=== PATIENT | female | born 1975 | race Caucasian/White ===

== ENCOUNTER 2019-03-27 21:14 | Observation (INO) ==
[2019-03-27] MEDS ORDERED: 0.9 % Sodium Chloride 500 ML IVC ONE (21:40)
[2019-03-27 21:53] LABS: Bilirubin,Urine Negative (Negative); Blood,Urine Negative (Negative); Clarity,Urine Clear (Clear); Color,Urine Yellow (Yellow); Glucose,Urine (UA) Normal (Normal); Ketones,Urine Negative (Negative); Leukocyte Esterase,Urine Negative (Negative); Nitrite,Urine Negative (Negative); Protein,Urine Negative (Neg-Trace); Specific Gravity,Urine 1.021 (1.010-1.025); Urobilinogen,Urine Normal (Normal)
[2019-03-27 22:24] LABS: Basophils % 0.3 %; Eosinophils # 0.1 K/mcL (0.0-0.6); Eosinophils % 1.1 %; Hematocrit 40.8 % (35.3-44.9); Hemoglobin 13.7 g/dL (11.5-15.4); Immature Granulocytes % 0.2 % (0-4); Lymphocytes % 9.6 %; Mean Corpuscular HGB Conc 33.6 g/dL (31.6-35.5); Mean Corpuscular Hemoglobin 29.2 pg (28.0-33.3); Mean Platelet Volume 10.8 fL (9.4-12.4); Monocytes # 0.7 K/mcL (0.0-1.3); Monocytes % 7.3 %; Neutrophils # 8.2 K/mcL (1.6-8.9); Platelet Count 208 K/mcL (140-400); Red Blood Count 4.69 M/mcL (3.82-4.97); Red Cell Distribution Width 13.2 % (11.5-14.5); Segmented Neutrophils % 81.5 %
[2019-03-27 22:44] LABS: Alanine Aminotransferase 11 Units/L (7-52); Albumin 4.8 g/dL (3.5-5.7); Albumin/Globulin Ratio 1.8 (1.1-2.2); Alkaline Phosphatase 80 Units/L (34-104); Amylase 54 Units/L (29-103); Aspartate Amino Transferase 14 Units/L (13-39); BUN/Creatinine Ratio 18 (6-26); Bilirubin,Total 0.3 mg/dL (0.3-1.0); Blood Urea Nitrogen 17 mg/dL (6-20); Calcium 9.7 mg/dL (8.6-10.3); Carbon Dioxide 28 mEq/L (23-29); Chloride 102 mEq/L (98-107); Globulin 2.7 g/dL (2.4-3.5); Glucose 112 mg/dL (70-105); Lipase 41 Units/L (11-82); Osmolality,Calculated 290 (280-300); Potassium 3.9 mEq/L (3.5-5.1); Sodium 139 mEq/L (136-145); Total Protein 7.5 g/dL (6.4-8.9); eGFR For African Americans > 60 (> 60); eGFR For Non-African Americans > 60 (> 60)
[2019-03-27] MEDS ORDERED: Bupivacaine/EPI 1:200k 0.5%PF 30 ML VIAL ONE (23:18)
[2019-03-27] MEDS ORDERED: Lidocaine -MPF 2% 2 ML VIAL ONE (23:26)
[2019-03-27] MEDS ORDERED: *HR* Rocuronium Bromide 50 MG/5 ML VIAL ONE (23:26)
[2019-03-27] MEDS ORDERED: *HR* Propofol 200 MG/20 ML VIAL IVP ONE (23:26)
[2019-03-27] MEDS ORDERED: *HR* Midazolam HCl 2 MG/2 ML VIAL ONE (23:26)
[2019-03-27] MEDS ORDERED: *HR* FentaNYL (PF) 100 MCG/2 ML VIAL ONE (23:26)
[2019-03-27] MEDS ORDERED: Ondansetron 4 MG/2 ML VIAL ONE (23:33)
[2019-03-27] MEDS ORDERED: Dexamethasone 4 MG/ML VIAL ONE (23:33)
[2019-03-27] MEDS ORDERED: CefOXitin 2,000 MG VIAL ONE (23:40)
[2019-03-28] MEDS ORDERED: Ondansetron 4 MG/2 ML VIAL IVP PRN ×2 (00:52→02:03)
[2019-03-28] MEDS ORDERED: *HR* HYDROmorphone (PF) 1 MG/ML SYRINGE IVP PRN (00:52)
[2019-03-28] MEDS: *HR* Promethazine 25 MG/ML VIAL IVP PRN ×2 (01:07→01:16)
[2019-03-28] MEDS ORDERED: Morphine Sulfate Oral CONC 10 MG/0.5 ML ORAL.SYG SL PRN (02:03)
[2019-03-28] MEDS ORDERED: *HR* OxyCODONE Immed Rel 5 MG TABLET PO PRN (02:03)
[2019-03-28 05:07] LABS: Basophils % 0.1 %; Hematocrit 36.8 % (35.3-44.9); Hemoglobin 12.3 g/dL (11.5-15.4); Immature Granulocytes % 0.4 % (0-4); Lymphocytes # 0.5 K/mcL (0.6-4.6); Lymphocytes % 5.4 %; Mean Corpuscular HGB Conc 33.4 g/dL (31.6-35.5); Mean Corpuscular Hemoglobin 28.7 pg (28.0-33.3); Mean Platelet Volume 10.8 fL (9.4-12.4); Monocytes # 0.3 K/mcL (0.0-1.3); Neutrophils # 8.2 K/mcL (1.6-8.9); Platelet Count 177 K/mcL (140-400); Red Blood Count 4.28 M/mcL (3.82-4.97); Red Cell Distribution Width 13.2 % (11.5-14.5); Segmented Neutrophils % 91.1 %
[2019-03-28] MEDS: Ketorolac 30 MG/ML VIAL IVP SCH ×2 (05:55→12:14)
[2019-03-28] MEDS: Acetaminophen IV 1,000 MG/100 ML INFUS..BTL IVPB SCH ×2 (05:56→12:15)
[2019-03-28] MEDS ORDERED: *HR* Heparin 5,000 UNIT/ML VIAL SQ SCH (06:00)
[2019-03-28] MEDS ORDERED: Pantoprazole 40 MG VIAL IVP SCH (06:30)
[2019-03-28] MEDS ORDERED: cefOXitin 1,000 MG in Water for inj. (sterile) 10 ML IVP SCH (08:00)
[2019-03-28] MEDS ORDERED: cefOXitin 1,000 MG in 0.9 % Sodium Chloride Mini Bag 100 ML IVPB SCH (08:00)
[2019-03-28 15:22] VITALS: BP 106/69
== END 2019-03-28 16:12 | disposition home or self-care (01) ==
LOC: EMEROOARM 21:14 → 2ANU 21:14
PROVIDERS: ADMIT Surgery; ATTEND Surgery